=== PATIENT | male | born 1935 | race Caucasian/White ===

== ENCOUNTER 2016-11-14 17:26 | Emergency (ER) | payer MEDICARE, BC ==
[~2016-11-14 17:26] MED LIST: ALTACE; ASPIRINEC PO; CERTAGEN PO; DARVOCET-N 1001 TAB PO; EQUATE ALLERGY RELIE PO; FAMOTIDINE PO; HCTZ PO; IBUPROFEN PO; LIPITOR PO; LISINOPRIL PO; METOPROLOL SUCC50 MG; NEXIUM; [UNRECOGNIZED DRUG - OTHER] PO
[2016-11-14] MEDS ORDERED: ELIQUIS5 MG PO (17:33)
== END 2016-11-14 18:36 | disposition home or self-care (01) ==
LOC: SED 17:26
DX: S61.412A Laceration without foreign body of left hand, initial encounter (principal); I10 Essential (primary) hypertension; Z87.891 Personal history of nicotine dependence; Z79.82 Long term (current) use of aspirin; Z79.899 Other long term (current) drug therapy; W45.8XXA Other foreign body or object entering through skin, initial encounter; Y92.009 Unspecified place in unspecified non-institutional (private) residence as the place of occurrence of the external cause
CPT/HCPCS: 12002; 99283

== ENCOUNTER 2016-12-18 13:08 | Emergency (ER) | payer MEDICARE, BC ==
--- NOTE | ~2016-12-18 | CR20 ---
[facility] A Service of [facility] & [facility] RADIOLOGY TEXT RESULTS PATIENT: EDWIN DUBOIS LOCATION: SED : 33 UNIT #: [id number] AGE: [address]: TYSHAWN STEINBERG SEX: M ORDER DR: [id number] [place] [id number] E MR#: [id number] Acc #: [id number] NAME: EDWIN DUBOIS : 1935 SEX: M STUDY DATE/TIME: 12/18/2016 14:48 UNIT: SED ROOM: STUDY DESCRIPTION: CR Ankle Min 3 Views Lt Attending Physician: Tyshawn Steinberg Aprn Ordering Physician: Tyshawn Steinberg Aprn Primary Care Physician: Nicolas Barnes M.D. MEDICAL IMAGING REPORT This report is preliminary unless electronic signature is present. EXAM Left ankle. HISTORY Patient fell off of a ladder earlier today. Lateral left ankle pain. TECHNIQUE 3 views of the left ankle were obtained. FINDINGS There is a nondisplaced oblique fracture of the distal fibula. The ankle mortise is symmetric. The dome of the talus is intact. No definite fracture is seen on the medial side. There is a small spur at the medial malleolus. IMPRESSION Nondisplaced, nonangulated oblique distal fibular fracture. Dictated by... Buddy Willett M.D. THIS IS AN ELECTRONICALLY VERIFIED REPORT Buddy Willett M.D. at 12/19/2016 7:30 AM DINA/charity TD: 12/18/2016 17:04 JOB #: [id number] MEDICAL IMAGING REPORT Page 1 of 1
--- NOTE | ~2016-12-18 | CR169 ---
[facility]. [facility] A Service [facility] RADIOLOGY TEXT RESULTS PATIENT: EDWIN DUBOIS LOCATION: SED : 33 UNIT #: [id number] AGE: [address]: TYSHAWN STEINBERG SEX: M ORDER DR: [id number] [place] [id number] E MR#: [id number] Acc #: [id number] NAME: EDWIN DUBOIS : 1935 SEX: M STUDY DATE/TIME: 12/18/2016 13:59 UNIT: SED ROOM: STUDY DESCRIPTION: CR Knee 2 Views Lt Attending Physician: Tyshawn Steinberg Aprn Ordering Physician: Tyshawn Steinberg Aprn Primary Care Physician: Nicolas Barnes M.D. MEDICAL IMAGING REPORT This report is preliminary unless electronic signature is present. EXAM Left knee, 2 views, 12/18/2016, 1359 hours. CLINICAL HISTORY Patient fell from third step of foot ladder at noon today. Diffuse knee pain. COMPARISON Left tibia and fibula film, 11/08/2009. FINDINGS AP and lateral views demonstrate a large knee joint effusion without lipohemarthrosis. There is mild joint space loss without significant spurring. No fracture seen. IMPRESSION 1. Large suprapatellar bursa effusion with no lipohemarthrosis or fracture. 2. Minimal degenerative spurring. Dictated by... Fatimah Dunn M.D. THIS IS AN ELECTRONICALLY VERIFIED REPORT Fatimah Dunn M.D. at 12/18/2016 6:52 PM KATARZYNA/clyde TD: 12/18/2016 14:38 JOB #: [id number] [facility]. [facility] A Service [facility] RADIOLOGY TEXT RESULTS PATIENT: DEWIN DUBOIS LOCATION: SED : 33 UNIT #: [id number] AGE: [address]: TYSHAWN STEINBERG SEX: M ORDER DR: MEDICAL IMAGING REPORT Page 1 of 1
[~2016-12-18 13:08] MED LIST changes: +ELIQUIS5 MG PO
[2016-12-18] MEDS ORDERED: AMLODIPINE BESYL5 MG (13:14)
[2016-12-18] MEDS ORDERED: ELIQUIS5 MG (13:14)
[2016-12-18] MEDS ORDERED: METOPROLOL SUCC50 MG (13:14)
[2016-12-18] MEDS ORDERED: ATORVASTATIN CA10 MG (13:14)
== END 2016-12-18 17:02 | disposition home or self-care (01) ==
LOC: SED 13:08
DX: S82.832A Other fracture of upper and lower end of left fibula, initial encounter for closed fracture (principal); M25.462 Effusion, left knee; W11.XXXA Fall on and from ladder, initial encounter; Y92.9 Unspecified place or not applicable; I10 Essential (primary) hypertension
CPT/HCPCS: 29515; 73560; 73610; 99283

== ENCOUNTER → 2017-01-03 | Outpatient (CLI) | payer MEDICARE, BC ==
[~2017-01-03] MED LIST changes: +AMLODIPINE BESYL5 MG; +ATORVASTATIN CA10 MG; +ELIQUIS5 MG
--- NOTE | ~2017-01-03 | CR169 ---
[facility] A Service of [facility] & [facility] RADIOLOGY TEXT RESULTS PATIENT: EDWIN DUBOIS LOCATION: [facility] : 33 UNIT #: [id number] AGE: [address]: Domonique Bai MD SEX: M ORDER DR: [id number] [address] [address] [id number] O MR#: [id number] Acc #: [id number] NAME: EDWIN DUBOIS : 1935 SEX: M STUDY DATE/TIME: 01/03/2017 10:19 UNIT: [facility] ROOM: STUDY DESCRIPTION: CR Knee 2 Views Lt Attending Physician: Domonique Bai M.D. Referring Physician: Domonique Bai M.D. Ordering Physician: Domonique Bai M.D. Primary Care Physician: Nicolas Barnes M.D. MEDICAL IMAGING REPORT This report is preliminary unless electronic signature is present. EXAM Left knee HISTORY Knee pain after falling off a ladder on 12/18/2016. Large joint effusion. TECHNIQUE Two views of the knee were obtained. FINDINGS A large joint effusion is again seen. It has decreased since the previous exam. There is cortical irregularity and a slight cortical defect seen along the medial aspect of the medial femoral condyle. It appears unchanged from the previous examination. It could potentially represent a small avulsion fracture at the MCL insertion. It could also be chronic and related old trauma. No other suspicious areas are seen. Mild joint space narrowing is seen in the medial and lateral compartments. IMPRESSION Avulsion fracture of the medial femoral condyle near the expected insertion site of the medial collateral ligament. This may represent an avulsion fracture related to an MCL ligament tear either recently or in the past. It is accompanied by a large joint effusion which has improved since the previous exam. 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 Dictated by... Buddy Willett M.D. THIS IS AN ELECTRONICALLY VERIFIED REPORT uBddy Willett M.D. at 01/06/2017 11:44 AM RLF/wesley [facility] A Service of [facility] & [facility] RADIOLOGY TEXT RESULTS PATIENT: EDWIN DUBOIS LOCATION: [facility] : 33 UNIT #: [id number] AGE: [address]: Domonique Bai MD SEX: M ORDER DR: TD: 01/03/2017 16:25 JOB #: [id number] MEDICAL IMAGING REPORT Page 1 of 1
--- NOTE | ~2017-01-03 | CR20 ---
[facility] A Service [facility] RADIOLOGY TEXT RESULTS PATIENT: EDWIN DUBOIS LOCATION: [facility] : 33 UNIT #: [id number] AGE: [address]: Domonique Bai MD SEX: M ORDER DR: [id number] [place] [id number] O MR#: [id number] Acc #: [id number] NAME: EDWIN DUBOIS : 1935 SEX: M STUDY DATE/TIME: 01/03/2017 10:19 [facility] ROOM: STUDY DESCRIPTION: CR Ankle Min 3 Views Lt Attending Physician: Domonique Bai M.D. Referring Physician: Domonique Bai M.D. Ordering Physician: Domonique Bai M.D. Primary Care Physician: Nicolas Barnes M.D. MEDICAL IMAGING REPORT This report is preliminary unless electronic signature is present. EXAM Left ankle HISTORY Ankle fracture. Patient fell off a ladder on 12/18/2016. Evaluate healing. COMPARISON 12/18/2016 TECHNIQUE 3 views of the ankle were obtained. FINDINGS 3 views of the ankle show no change alignment position across the distal fibular fracture. There is early callus formation noted. The ankle mortise is symmetric. No new lesions are seen. IMPRESSION Early healing noted in the left distal fibular fracture. No change in alignment and position. Dictated by... Buddy Willett M.D. THIS IS AN ELECTRONICALLY VERIFIED REPORT Buddy Willett M.D. at 01/06/2017 11:44 AM RLF/to TD: 01/03/2017 16:11 JOB #: [id number] [facility] A Service [facility] RADIOLOGY TEXT RESULTS PATIENT: EDWIN DUBOIS LOCATION: [facility] : 33 UNIT #: [id number] AGE: [address]: Domonique Bai MD SEX: M ORDER DR: MEDICAL IMAGING REPORT Page 1 of 1
== END | disposition home or self-care (01) ==
LOC: SRAD 09:55
DX: S82.832D Other fracture of upper and lower end of left fibula, subsequent encounter for closed fracture with routine healing (principal); S82.202D Unspecified fracture of shaft of left tibia, subsequent encounter for closed fracture with routine healing; S72.92XD Unspecified fracture of left femur, subsequent encounter for closed fracture with routine healing; M17.12 Unilateral primary osteoarthritis, left knee
CPT/HCPCS: 73560; 73610

== ENCOUNTER → 2017-01-31 | Outpatient (CLI) | payer OTHER, MEDICARE, BC ==
--- NOTE | ~2017-01-31 | CR20 ---
[facility] A Service [facility] RADIOLOGY TEXT RESULTS PATIENT: EDWIN DUBOIS LOCATION: [facility] : 33 UNIT #: [id number] AGE: [address]: Domonique Bai MD SEX: M ORDER DR: [id number] [address] [address] [id number] O MR#: [id number] Acc #: [id number] NAME: EDWIN DUBOIS : 1935 SEX: M STUDY DATE/TIME: 01/31/2017 10:15 UNIT: [facility] ROOM: STUDY DESCRIPTION: CR Ankle Min 3 Views Lt Attending Physician: Domonique Bai M.D. Referring Physician: Domonique Bai M.D. Ordering Physician: Domonique Bai M.D. Primary Care Physician: Nicolas Barnes M.D. MEDICAL IMAGING REPORT This report is preliminary unless electronic signature is present. EXAM Left ankle HISTORY Left ankle pain. Fell off ladder two months ago with left ankle and knee pain. FINDINGS Three views of the left ankle were obtained. There is an oblique fracture through the distal fibula. There is no significant callous formation. Margin of somewhat indistinct. The tibia is intact. There is no dislocation. IMPRESSION An oblique fracture through the distal fibular shaft. There is no callous formation visible. History states patient had injury two months ago and the margins of this fracture are slightly indistinct so it is possible that it is a 2 month old fracture. Otherwise study is normal. Dictated by... Jovanni Goldstein M.D. THIS IS AN ELECTRONICALLY VERIFIED REPORT Jovanni Goldstein M.D. at 02/01/2017 6:24 AM KYLEIGH/amber TD: 01/31/2017 23:43 JOB #: [id number] [facility] A Service [facility] RADIOLOGY TEXT RESULTS PATIENT: EDWIN DUBOIS LOCATION: [facility] : 33 UNIT #: [id number] AGE: [address]: Domonique Bai MD SEX: M ORDER DR: MEDICAL IMAGING REPORT Page 1 of 1
--- NOTE | ~2017-01-31 | CR169 ---
[facility] A Service of [facility] & [facility] RADIOLOGY TEXT RESULTS PATIENT: EDWIN DUBOIS LOCATION: [facility] : 33 UNIT #: [id number] AGE: [address]: Domonique Bai MD SEX: M ORDER DR: [id number] [place] [id number] O MR#: [id number] Acc #: [id number] NAME: EDWIN DUBOIS : 1935 SEX: M STUDY DATE/TIME: 01/31/2017 10:15 [facility]: STUDY DESCRIPTION: CR Knee 2 Views Lt Attending Physician: Domonique Bai M.D. Referring Physician: Domonique Bai M.D. Ordering Physician: Domonique Bai M.D. Primary Care Physician: Nicolas Barnes M.D. MEDICAL IMAGING REPORT This report is preliminary unless electronic signature is present. EXAM Left knee. COMPARISON 01/03/2017 INDICATIONS Left knee after fall from ladder 2 months ago. FINDINGS AP, lateral, and sunrise views of the left knee were obtained. No fractures identified. There is no effusion. Joint spaces are normal. IMPRESSION Normal left knee. Dictated by... Jovanni Goldstein M.D. THIS IS AN ELECTRONICALLY VERIFIED REPORT Jovanni Goldstein M.D. at 02/01/2017 6:24 AM KYLEIGH/charity TD: 01/31/2017 23:45 JOB #: [id number] MEDICAL IMAGING REPORT Page 1 of 1
== END | disposition home or self-care (01) ==
LOC: SRAD 10:00
DX: S82.302A Unspecified fracture of lower end of left tibia, initial encounter for closed fracture (principal); S82.142A Displaced bicondylar fracture of left tibia, initial encounter for closed fracture; S82.402A Unspecified fracture of shaft of left fibula, initial encounter for closed fracture
CPT/HCPCS: 73560; 73610